=== PATIENT | female | born 1975 | race Hispanic/Latino ===

== ENCOUNTER 2018-07-26 16:19 | Emergency (ER) | payer BC ==
--- NOTE | 2018-07-26 17:06 | CT ---
EXAM: CT brain without contrast HISTORY: Sudden onset of a severe headache COMPARISON: None TECHNIQUE: Multiple contiguous axial images were obtained and a CT of the brain without contrast. FINDINGS: The brain is normal in morphology and attenuation without focal lesions or confluent areas of infarction. There is no evidence of hydrocephalus, intracranial hemorrhage, or extra-axial fluid collection. The calvarium and overlying soft tissues are unremarkable. The visualized paranasal sinuses and masto id air cells are well aerated. IMPRESSION: No evidence of acute intracranial abnormality
[2018-07-26 17:27] LABS: #Basophils 0.1 thou/uL (0.0-0.2); #Eosinphils 0.2 thou/uL (0.0-0.7); #Lymphocytes 3.1 thou/uL (1.20-3.40); #Monocytes 0.7 thou/uL (0.11-0.59); #Neutrophils 7.7 thou/uL (1.40-6.50); %Basophils 0.5 % (0.0-1.0); %Eosinophils 1.8 % (0.0-10.0); %Lymphocytes 26.1 % (21.0-51.0); %Monocytes 6.3 % (0.0-10.0); %Neutrophils 65.3 % (42.0-75.0); Hemoglobin 13.6 g/dL (12.0-16.0); Mean Corpuscular HGB CONC 34.8 g/dL (32.0-36.0); Mean Corpuscular Hemoglobin 31.5 pg (27.0-31.0); Mean Corpuscular Volume 90.5 fL (78.0-98.0); Mean Platelet Volume 7.8 fL (7.4-10.4); Platelet Count 320 thou/uL (130-400); RBC Distribution Width 13.2 % (11.5-14.5); Red Blood Cell (RBC) Count 4.31 mill/uL (4.20-5.40); White Blood Cell (WBC) Count 11.7 thou/uL (4.8-10.8)
[2018-07-26] MEDS ORDERED: Dexamethasone 10 MG/ML VIAL ONE (17:46)
[2018-07-26] MEDS ORDERED: Fentanyl 100 MCG/2 ML VIAL ONE (17:46)
[2018-07-26] MEDS ORDERED: Metoclopramide HCl 10 MG/2 ML VIAL ONE (17:46)
[2018-07-26] MEDS ORDERED: Ketorolac Tromethamine 30 MG/ML VIAL ONE (17:46)
[2018-07-26 17:48] LABS: ALT (SGPT) 19 U/L (8-55); AST (SGOT) 14 U/L (5-34); Albumin 4.1 g/dL (3.5-5.0); Alkaline Phosphatase 117 U/L (40-150); Anion Gap 11 mmol/L (10-20); BUN (Urea Nitrogen) 14 mg/dL (7.0-18.7); Bilirubin, Total 0.3 mg/dL (0.2-1.2); Calc. Creatinine Clearance 0 mL/min (70-130); Calcium 9.6 mg/dL (7.8-10.44); Carbon Dioxide 29 mmol/L (22-29); Chloride 106 mmol/L (98-107); Estimated GFR-MDRD 70; Glucose 92 mg/dL (70-105); Potassium 4.1 mmol/L (3.5-5.1); Protein, Total 7.1 g/dL (6.0-8.3); Sodium 142 mmol/L (136-145)
== END 2018-07-26 19:05 | disposition home or self-care (01) ==
LOC: ERS 16:19
DX: R51 Headache (principal); G47.30 Sleep apnea, unspecified; Z87.442 Personal history of urinary calculi; Z79.899 Other long term (current) drug therapy
CPT/HCPCS: 36415; 70450; 80053; 85025; 93005; 96365; 96375; J1100; J1885; J2765; J3010

== ENCOUNTER 2018-07-29 19:59 | Emergency (ER) | payer BC ==
[2018-07-29] MEDS ORDERED: Acetaminophen 500 MG TAB ONE (20:36)
[2018-07-29] MEDS ORDERED: Metoclopramide HCl 10 MG/2 ML VIAL ONE (20:36)
[2018-07-29] MEDS ORDERED: diphenhydrAMINE 50 MG/ML VIAL ONE (20:36)
[2018-07-29] MEDS ORDERED: Magnesium 2 GM/50 ML BAG (IN WATER) ONE (20:50)
--- NOTE | 2018-07-29 21:17 | CT ---
BRAIN CT WITHOUT IV CONTRAST: Date: 07/29/18 HISTORY: Headaches. COMPARISON: 07/26/18. FINDINGS: No focal mass or midline shift. No intra or extra-axial hemorrhage. Right maxillary sinus mucus reten tion cyst. Mastoids appear clear of acute process. IMPRESSION: No mass or bleed, or other acute process. Right maxillary sinus mucus retention cyst. POS: RRE
--- NOTE | 2018-07-29 21:31 | CT ---
HEAD CT ANGIOGRAM WITH 3D RENDERING: Date: 07/29/18 HISTORY: Headache for 3 days. COMPARISON: Head CT dated 07/29/18. Head CT scan dated 07/26/18. FINDINGS: There is a smaller caliber right vertebral artery compared to the left. The visualized right and left middle cerebral arteries are unremarkable. No evidence for occlusion or significant high grade steno sis. No evidence for an aneurysm. Visualized anterior cerebral and posterior cerebral arteries are un remarkable. Vertebrobasilar arteries are unremarkable other than the somewhat smaller caliber right v ertebral artery. IMPRESSION: Unremarkable head CT angiogram. No evidence for major branch occlusion or high grade stenosis. No keegan dence for an aneurysm. Right maxillary sinus mucus retention cyst. POS: RRE
== END 2018-07-29 23:20 | disposition home or self-care (01) ==
LOC: ERS 19:59
DX: R51 Headache (principal); G47.30 Sleep apnea, unspecified
CPT/HCPCS: 70450; 70496; 96361; 96365; 96367; 96375; J1200; J2765; J3475

== ENCOUNTER 2018-12-24 15:06 | Outpatient (CLI) | payer BC ==
--- NOTE | 2018-12-24 15:52 | MMO ---
Bilateral MAMMO Bilat Screen [facility]. CLINICAL HISTORY: Patient is 43 years old and is seen for screening. The patient has no family history of breast cancer. The patient has a history of endometrial cancer at age 40. VIEWS: The views performed were: bilateral craniocaudal with tomosynthesis and bilateral mediolateral oblique with tomosynthesis. FILMS COMPARED: The present examination has been compared to prior imaging studies performed at [facility] on 04/29/2014 and 01/09/2016. This study has been interpreted with the assistance of computer-aided detection. MAMMOGRAM FINDINGS: There are scattered fibroglandular densities. There are no suspicious masses, suspicious calcifications, or new areas of architectural distortion. IMPRESSION: THERE IS NO MAMMOGRAPHIC EVIDENCE OF MALIGNANCY. A ROUTINE FOLLOW-UP MAMMOGRAM IN 1 YEAR IS RECOMMENDED. THE RESULTS OF THIS EXAM WERE SENT TO THE PATIENT. ACR BI-RADS Category 1 - Negative MAMMOGRAPHY NOTE: 1. A negative mammogram report should not delay a biopsy if a dominant of clinically suspicious mass is present. 2. Approximately 10% to 15% of breast cancers are not detected by mammography. 3. Adenosis and dense breasts may obscure an underlying neoplasm. Reported by: BASILIO GOMEZ MD Electonically Signed: [id number]
== END 2018-12-24 15:07 | disposition home or self-care (01) ==
LOC: BICMAMMO 15:06
PROVIDERS: ATTEND Obstetrics & Gynecology
DX: Z12.31 Encounter for screening mammogram for malignant neoplasm of breast (principal); Z85.89 Personal history of malignant neoplasm of other organs and systems
CPT/HCPCS: 77063; 77067

== ENCOUNTER 2019-07-02 15:11 | Outpatient (CLI) | payer BC, OTHER ==
[2019-07-03 11:42] LABS: SARS-CoV-2 MS2 Positive; SARS-CoV-2 N Gene Negative; SARS-CoV-2 S Gene Negative; SARS-CoV-2 orf1ab Negative
== END 2019-07-02 15:12 | disposition home or self-care (01) ==
LOC: LABBT 15:11
PROVIDERS: ATTEND Internal Medicine Gastroenterology
DX: Z01.812 Encounter for preprocedural laboratory examination (principal); Z11.59 Encounter for screening for other viral diseases; Z12.11 Encounter for screening for malignant neoplasm of colon; Z83.71 Family history of colonic polyps
CPT/HCPCS: 87635; U0003

== ENCOUNTER 2019-07-06 08:48 | Day surgery (SDC) | payer BC ==
[2019-07-02 15:31] VITALS: BMI 53.3
[2019-07-06] MEDS ORDERED: PROPOFOL 200 MG/20 ML VIAL ONE (10:59)
[2019-07-06] MEDS ORDERED: Lidocaine 1% PF 5 ML VIAL ONE (10:59)
--- NOTE | 2019-07-06 12:28 | OP ---
DATE OF PROCEDURE: 07/06/2019 PROCEDURE PERFORMED: Colonoscopy with snare polypectomy. PREOPERATIVE DIAGNOSES: 1. Family history of colon polyps. 2. Colon cancer screening. DESCRIPTION OF PROCEDURE: Informed consent was obtained from the patient. She was sedated with total intravenous anesthesia. The rectal exam was performed and was normal. The preparation quality was good. The colonoscope was advanced to the cecum, where the ileocecal valve and appendiceal orifice were clearly identified. I removed a 3-mm polyp from the transverse colon by cold snare polypectomy. There was mild diverticulosis in the sigmoid colon. The colonic mucosa was otherwise normal including retroflexed views in the rectum. IMPRESSION: 1. 3-mm polyp removed from the transverse colon. 2. Mild sigmoid diverticulosis. 3. Otherwise normal colonoscopy. RECOMMENDATIONS: Repeat colonoscopy in 5 years if the polyp is an adenoma. Repeat colonoscopy in 10 years if the polyp is hyperplastic or normal. Repeat colonoscopy in 5 years if the polyp is a sessile serrated polyp. Job ID: [id number]
== END 2019-07-06 12:18 | disposition home or self-care (01) ==
LOC: SDC 08:48
PROVIDERS: ATTEND Internal Medicine Gastroenterology
PROC: 0DBL8ZX Excision of Transverse Colon, Via Natural or Artificial Opening Endoscopic, Diagnostic (ICD-10-PCS; principal; 2019-07-06)
DX: Z12.11 Encounter for screening for malignant neoplasm of colon (principal); D12.3 Benign neoplasm of transverse colon; K57.30 Diverticulosis of large intestine without perforation or abscess without bleeding; G43.909 Migraine, unspecified, not intractable, without status migrainosus; K21.9 Gastro-esophageal reflux disease without esophagitis; Z83.71 Family history of colonic polyps; Z79.899 Other long term (current) drug therapy
CPT/HCPCS: 88305; J2001; J2704

== ENCOUNTER 2020-08-01 09:02 | Outpatient (CLI) | payer BC | END 2020-08-01 09:03 | disposition home or self-care (01) | LOC: BICMAMMO 09:02 | PROVIDERS: ATTEND Family Medicine | DX: Z12.31 Encounter for screening mammogram for malignant neoplasm of breast (principal); Z85.42 Personal history of malignant neoplasm of other parts of uterus | CPT/HCPCS: 77063; 77067 ==

== ENCOUNTER 2021-08-02 08:51 | Outpatient (CLI) | payer BC | END 2021-08-02 08:52 | disposition home or self-care (01) | LOC: BICMAMMO 08:51 | PROVIDERS: ATTEND Obstetrics & Gynecology | DX: Z12.31 Encounter for screening mammogram for malignant neoplasm of breast (principal); Z85.42 Personal history of malignant neoplasm of other parts of uterus | CPT/HCPCS: 77063; 77067 ==

== ENCOUNTER 2022-08-09 11:14 | Outpatient (CLI) | payer BC | END 2022-08-09 11:15 | disposition home or self-care (01) | LOC: BICMAMMO 11:14 | PROVIDERS: ATTEND Obstetrics & Gynecology | DX: Z12.31 Encounter for screening mammogram for malignant neoplasm of breast (principal); Z85.3 Personal history of malignant neoplasm of breast | CPT/HCPCS: 77063; 77067 ==

== ENCOUNTER 2024-02-14 13:37 | Outpatient (CLI) | payer BC | END 2024-02-14 13:38 | disposition home or self-care (01) | LOC: BICRAD 13:37 | PROVIDERS: ATTEND Family Medicine | DX: M25.511 Pain in right shoulder (principal) ==